=== PATIENT | male | born 1970 | race African-American/Black ===

== ENCOUNTER 2018-09-21 09:03 | Day surgery (SDC) | payer OTHER ==
[~2018-09-21] VITALS: Ht 182.9 cm; Wt 86.9 kg
[~2018-09-21 09:03] MED LIST: BENZ1TAB7 PO; BUSP10TA2 PO; CITA40TA6 PO; HYDR-3498 PO; PRAZ1CAP3 PO; RISP2TAB3 PO; TIOT4MIS4 INHALATION
[2018-09-21 10:06] VITALS: Ht 182.9 cm; Wt 86.9 kg
[2018-09-21 10:35] VITALS: BP 126/76; PULSE 74; RESP 20
--- NOTE | 2018-09-21 10:38 | PREAC ---
Date/Time of Note Date/Time of Note DATE: 09/21/18 TIME: 10:36 Anesthesia Eval and Record Evaluation Time Pre-Procedure Interview DATE: 09/21/18 TIME: 10:36 Age 48 Sex male NPO: 8 hrs Preoperative diagnosis Screening Planned procedure Colonoscopy Past Medical History Past Medical History: Includes Pulm: Smoking Hx, COPD Psych: Anxiety Recreational drugs: Marijuana Surgery & Anesthesia Issues No known issue Meds Anticoagulation: No Beta Miguel Angel within 24 hr: No Reason Beta Miguel Angel not given: Pt. not on B-Miguel Angel Reported Medications Tiotropium Br/Olodaterol HCl (Stiolto Respimat Inhal [place]) 4 Gm Mist.inhal, 2 PUFF INHALATION DAILY, #1 INHALER 09/21/18 Buspirone Hcl* (Buspirone Hcl*) 10 Mg Tab, 15 MG PO BID, TAB 09/21/18 Citalopram Hydrobromide* (Citalopram Hydrobromide*) 40 Mg Tablet, 40 MG PO DAILY, #30 TAB 09/21/18 Prazosin Hcl* (Prazosin Hcl*) 1 Mg Capsule, 1 MG PO HS, CAP 09/21/18 Benztropine Mesylate* (Benztropine Mesylate*) 1 Mg Tablet, 1 MG PO TID, TAB 09/21/18 Risperidone* (Risperidone*) 2 Mg Tablet, 2 MG PO DAILY, TAB 09/21/18 Discontinued Scripts Hydrocodone Bit-Acetaminophen* ([place]*) 5-325 Mg Tab, 1 TAB PO Q6 PRN for PAIN, #20 TAB Prov:MARY TODD 12/11/14 Meds reviewed: Yes Allergies Coded Allergies: Penicillins (Verified Allergy, 11/28/12) Allergies Reviewed: Yes Labs/Studies Labs Reviewed: Reviewed by anesthesiologist test: N/A Studies: ECG ( n/a), CXR (n/a) Pre-procedure Exam Airway: Adequate mouth opening, Adequate thyromental dist Mallampati: Mallampati II Teeth: Normal Lung: Normal Heart: Normal ASA Physical Status ASA physical status: 3 Emergency: None Planned Anesthetic General/MAC: MAC Planned Pain Management Parenteral pain med Pre-operative Attestations Prior to commencing anesthesia and surgery, the patient was re-evaluated, there was verification of: *The patient's identity *The results of appropriate recent lab work and preoperative vital signs *The above evaluation not changing prior to induction *Anesthetic plan, risk benefits, alternative and complications discussed with patient/family; questions answered; patient/family understands, accepts and wishes to proceed. JACKIE BRYANT MD Sep 21, 2018 10:38
[2018-09-21] MEDS ORDERED: PROPOFOL 60 ML ONE (11:11)
--- NOTE | 2018-09-21 11:12 | PAC ---
Date/Time of Note Date/Time of Note DATE: 09/21/18 TIME: 11:12 Post-Anesthesia Notes Post-Anesthesia Note Last documented vital signs T: 98.1 Activity: WNL Respiratory function: WNL Cardiovascular function: WNL Mental status: Baseline Pain reasonably controlled: Yes Hydration appropriate: Yes Nausea/Vomiting absent: Yes JACKIE BRYANT MD Sep 21, 2018 11:12
[2018-09-21 11:35] VITALS: BP 105/69; RESP 20
== END 2018-09-21 16:46 | disposition home or self-care (01) ==
LOC: GIL 09:03
PROVIDERS: ATTEND Internal Medicine Gastroenterology
DX: Z12.11 Encounter for screening for malignant neoplasm of colon (principal); K64.1 Second degree hemorrhoids; J44.9 Chronic obstructive pulmonary disease, unspecified; F17.200 Nicotine dependence, unspecified, uncomplicated
CPT/HCPCS: 45378; Z7610